=== PATIENT | female | born 1965 | race Caucasian/White ===

== ENCOUNTER 2016-06-28 10:05 | Emergency (ER) | payer MEDICAID ==
[2016-06-28 10:13] VITALS: BP 165/103
--- NOTE | 2016-06-28 11:11 | ED Physician Documentation ---
History of Present Illness - Stated complaint Stated Complaint: L FACE SWELLING/PX - Chief complaint Chief Complaint: Heent - Additonal information Additional information: hx from pt 51 female has dentures L upper gum pain and swelling and now facial swelling no fever painful Review of Systems Constitutional: denies: Fever Throat: reports: Dental pain / toothache Immunocompromised: denies: Immunocompromised PD PAST MEDICAL HISTORY - Past Medical History Past Medical History: Yes Cardiovascular: Hypertension Respiratory: None Neuro: None Endocrine/Autoimmune: None GI: None ACCOUNTS PAYABLE ASSISTANT: Other : None HEENT: None Psych: None Musculoskeletal: None Derm: None - Past Surgical History Past Surgical History: Yes /ACCOUNTS PAYABLE ASSISTANT: Hysterectomy HEENT: Other - Present Medications Home Medications: Ambulatory Orders Medication Instructions Recorded Confirmed Amoxicillin 500 mg PO Q8H #30 capsule 06/28/16 HYDROcod/ACETAM 5/325 [Carville 5/325] 1 ea PO Q6H PRN #10 tablet 06/28/16 - Allergies Allergies/Adverse Reactions: Allergies Allergy/AdvReac Type Severity Reaction Status Date / Time No Known Drug Allergies Allergy Verified 06/28/16 10:13 - Social History Does the pt smoke?: Yes Smoking Status: Current every day smoker Does the pt drink ETOH?: Yes Does the pt have substance abuse?: No - Immunizations Immunizations are current?: Yes PD ED PE NORMAL - Vitals Vital signs reviewed: Yes - HEENT HEENT: Other (upper left gum edentulous red and swollen and tender but no discrete abscess, some slight left cheek swelling) - Cardiac Cardiac: RRR, No murmur - Respiratory Respiratory: No respiratory distress, Clear bilaterally Results - Vitals Vitals: Vital Signs - 24 hr 06/28/16 10:11 Temperature 36.2 C L Heart Rate 95 Respiratory 14 Rate Blood Pressure 165/103 H O2 Saturation 100 Oxygen O2 Source Room air Departure - Departure Disposition: Home, Self Care Clinical Impression: Facial cellulitis Condition: Good Instructions: ED Cellulitis Facial Prescriptions: Amoxicillin 500 mg PO Q8H #30 capsule HYDROcod/ACETAM 5/325 [Carville 5/325] 1 ea PO Q6H PRN #10 tablet PRN Reason: Severe Pain Comments: Follow up with [facility] dental clinic Thursday - call to schedule Return to see me for a recheck tomorrow if not improving Forms: Activity restrictions
[2016-06-28] MEDS ORDERED: DEXAMETHASONE 10 MG/ML VIAL PO STA (11:14)
[2016-06-28] MEDS ORDERED: DEXAMETHASONE 10 MG/ML VIAL ONE (11:19)
== END 2016-06-28 11:29 | disposition home or self-care (01) ==
LOC: ED 10:05
DX: L03.211 Cellulitis of face (principal); I10 Essential (primary) hypertension; F17.200 Nicotine dependence, unspecified, uncomplicated
CPT/HCPCS: 99283

== ENCOUNTER 2016-08-25 07:31 | Outpatient (CLI) | payer MEDICAID ==
[2016-08-25 19:49] LABS: BASOPHILS % (AUTO) 0.7 %; EOSINOPHILS # (AUTO) 0.1 10^3/uL (0.0-0.7); HCT - HEMATOCRIT 41.7 % (37.0-47.0); HGB - HEMOGLOBIN 13.7 g/dL (12.0-16.0); LYMPHOCYTES # (AUTO) 1.9 10^3/uL (1.5-3.5); LYMPHOCYTES % (AUTO) 30.1 %; MEAN CORPUSCULAR HEMOGLOBIN 33.1 pg (27.0-31.0); MEAN CORPUSCULAR HGB CONC 32.8 g/dL (32.0-36.0); MEAN PLATELET VOLUME 7.6 fL (7.9-10.8); MONOCYTES # (AUTO) 0.5 10^3/uL (0.0-1.0); MONOCYTES % (AUTO) 8.6 %; NEUTROPHILS # (AUTO) 3.8 10^3/uL (1.5-6.6); NEUTROPHILS % (AUTO) 59.6 %; NUCLEATED RED BLOOD CELLS AUTO 0.1 /100WBC; RED BLOOD COUNT 4.13 10^6/uL (4.20-5.40); RED CELL DISTRIBUTION WIDTH 12.9 % (12.0-15.0); UNCORRECTED WHITE BLOOD COUNT 6.4 x10^3/uL; WHITE BLOOD COUNT 6.4 x10^3/uL (4.8-10.8)
[2016-08-25 20:01] LABS: ALBUMIN/GLOBULIN RATIO 1.6 (1.0-2.2); BILIRUBIN,TOTAL 0.6 mg/dL (0.2-1.0); BUN - BLOOD UREA NITROGEN 10 mg/dL (6-20); CALCIUM 9.6 mg/dL (8.5-10.3); CARBON DIOXIDE - CO2 25 mmol/L (21-32); CHLORIDE 98 mmol/L (101-111); CHOL/HDL RATIO 2.5 (<4.4); CHOLESTEROL 193 mg/dL; CREATININE 0.7 mg/dL (0.4-1.0); GFR - MDRD 88 (>89); GLUCOSE 90 mg/dL (70-100); HDL CHOLESTEROL 77 mg/dL; LDL/HDL RATIO 1.3 (<4.4); SODIUM 133 mmol/L (135-145); TOTAL PROTEIN 7.4 g/dL (6.7-8.2); TRIGLYCERIDES 80 mg/dL; VLDL CHOLESTEROL 16 mg/dL
== END 2016-08-25 07:32 | disposition home or self-care (01) ==
LOC: LAB.N 07:31
PROVIDERS: ATTEND Nurse Practitioner Gerontology
DX: Z13.9 Encounter for screening, unspecified (principal)
CPT/HCPCS: 36415; 80053; 80061; 84443; 85025

== ENCOUNTER 2016-08-25 15:28 | Outpatient (CLI) | payer MEDICAID ==
--- NOTE | 2016-08-27 09:51 | Mammography Report ---
DIGITAL BILATERAL SCREENING MAMMOGRAM: 08/25/2016 CLINICAL HISTORY: A 51-year-old female in for routine screening mammogram. Patient has no family hi story of breast cancer. Patient has no prior breast surgeries. COMPARISON: 01/31/2009, 06/04/2009, 08/30/2010 TECHNIQUE: Craniocaudad and oblique lateral views of each breast were obtained with Hologic Full Fie ld digital mammography. To compliment the exam, axillary exaggerated craniocaudad views of each jovani st were done. FINDINGS: Mildly heterogeneously dense breasts are noted bilaterally. No significant clusters of ca lcification are seen. No significant masses are noted. No significant change is seen. IMPRESSION: BREASTS APPEAR RADIOGRAPHICALLY BENIGN. BIRADS CATEGORY 1 - NEGATIVE. RECOMMENDATIONS: Annual bilateral screening mammography. STANDARD QUALIFYING STATEMENTS 1. This examination was reviewed with the aid of Computer-Aided Detection (CAD). 2. A negative or benign imaging report should not delay biopsy if clinically suspicious findings are present. Consider surgical consultation if warranted. More than 5% of cancers are not identified by i maging. 3. Dense breasts may obscure an underlying neoplasm. JOB #: [id number] EXT JOB #:[id number]
== END 2016-08-25 15:29 | disposition home or self-care (01) ==
LOC: DI.N 15:28
PROVIDERS: ATTEND Nurse Practitioner Gerontology
DX: Z12.39 Encounter for other screening for malignant neoplasm of breast (principal)
CPT/HCPCS: 77067

== ENCOUNTER 2017-06-20 13:32 | Outpatient (CLI) | payer MEDICAID ==
--- NOTE | 2017-06-20 15:41 | XRAY Report ---
EXAM: CHEST RADIOGRAPHY EXAM DATE: 06/20/2017 01:52 PM. CLINICAL HISTORY: RIB PAIN,LEFT SIDED. COMPARISON: Previous exam of 08/20/2010. TECHNIQUE: 2 views. FINDINGS: Lungs/Pleura: No focal opacities evident. No pleural effusion. No pneumothorax. Normal volumes. Mediastinum: Heart and mediastinal contours are unremarkable. Other: None. IMPRESSION: Normal 2-view chest radiography. [facility] Referring Provider Line: [phone] SITE ID: [id number]
== END 2017-06-20 13:33 | disposition home or self-care (01) ==
LOC: DI 13:32
PROVIDERS: ATTEND Nurse Practitioner Gerontology
DX: R07.81 Pleurodynia (principal)
CPT/HCPCS: 71046

== ENCOUNTER 2018-08-21 14:57 | Emergency (ER) | payer MEDICAID ==
[2018-08-21 15:02] VITALS: BP 146/94
[2018-08-21] MEDS ORDERED: ONDANSETRON ODT 4 MG TABLET TL STA (15:18)
[2018-08-21] MEDS ORDERED: HYDROcod/ACETAM 5/325 MG TABLET PO STA (15:18)
--- NOTE | 2018-08-21 15:21 | ED Physician Documentation ---
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 MACHINE OPERATOR: Other : None HEENT: None Psych: None Musculoskeletal: None Derm: None - Past Surgical History Past Surgical History: Yes /HOBBING MACHINE OPERATOR: Hysterectomy HEENT: Other - Present Medications Home Medications: Ambulatory Orders Medication Instructions Recorded Confirmed Hydrocodone/Acetaminophen 1 - 2 each PO Q6H PRN #14 tablet 08/21/18 [Hydrocodon-Acetaminophen 5-325] Lisinopril 10 mg PO DAILY 08/21/18 08/21/18 - Allergies Allergies/Adverse Reactions: Allergies Allergy/AdvReac Type Severity Reaction Status Date / Time No Known Drug Allergies Allergy Verified 08/21/18 15:02 - Social History Does the pt smoke?: Yes Smoking Status: Current every day smoker Does the pt drink ETOH?: Yes Does the pt have substance abuse?: No - Immunizations Immunizations are current?: Yes PD ED PE NORMAL - Vitals Vital signs reviewed: Yes - General General: Alert and oriented X 3, Other (tearful) - Neck Neck: No bony TTP - Extremities Extremities: Other (TTP R distal radius, no deformity, NVI in the hand) - Neuro Neuro: Alert and oriented X 3, Normal speech Results - Vitals Vitals: Vital Signs - 24 hr 08/21/18 15:01 Temperature 36.4 C L Heart Rate 105 H Respiratory 20 Rate Blood Pressure 146/94 H O2 Saturation 100 Oxygen O2 Source Room air - Rads (name of study) R wrist 3v Radiology: EMP read contemporaneously (comminuted intraarticular distal radius frx) Procedures - Splint (location) R arm Splint applied by: Tech Type of splint: Fiberglass, Long arm, Sugar tong Other: Patient tolerated well, No complications, Neurovascular intact, Sling provided Departure - Departure Disposition: 01 Home, Self Care Clinical Impression: Fracture of right distal radius Qualifiers: Encounter type: initial encounter Fracture type: closed Fracture morphology: other intra-articular Qualified Code(s): S52.571A - Other intraarticular fracture of lower end of right radius, initial encounter for closed fracture Condition: Good Record reviewed to determine appropriate education?: Yes Health Concerns: Wrist fracture Plan of Treatment: splint, followup orthopedics Instructions: ED Fx Forearm Radius Ulna No Redu Requ Follow-Up: [facility] [Provider Group] - Within 1 week Prescriptions: Hydrocodone/Acetaminophen [Hydrocodon-Acetaminophen 5-325] 1 - 2 each PO Q6H PRN #14 tablet PRN Reason: pain
--- NOTE | 2018-08-21 15:29 | XRAY Report ---
Reason: s/p fall while rollerskating. pain/selling Procedure Date: 08/21/2018 Accession Number: [id number] / [id number] Procedure: XR - Wrist 3 View RT CPT Code: FULL RESULT: EXAM: RIGHT WRIST RADIOGRAPHY EXAM DATE: 08/21/2018 03:14 PM. CLINICAL HISTORY: S/p fall while roller-skating. pain/selling. COMPARISON: None. TECHNIQUE: 3 views. FINDINGS: There is a comminuted fracture of the distal radius metaphysis with intra-articular extension and mild angulation measuring about 20 degrees. Minimal displacement and impaction of fracture fragments. There may be an avulsion fracture of the ulnar styloid. Normal carpal alignment. IMPRESSION: Comminuted intra-articular distal radius fracture. [facility]
== END 2018-08-21 15:49 | disposition home or self-care (01) ==
LOC: ED 14:57
DX: S52.571A Other intraarticular fracture of lower end of right radius, initial encounter for closed fracture (principal); W01.0XXA Fall on same level from slipping, tripping and stumbling without subsequent striking against object, initial encounter; Y93.51 Activity, roller skating (inline) and skateboarding; I10 Essential (primary) hypertension; F17.200 Nicotine dependence, unspecified, uncomplicated
CPT/HCPCS: 29125; 73110; 99281; 99283; A9270; Q0162; 29105

== ENCOUNTER 2018-08-24 09:54 | Outpatient (CLI) | payer MEDICAID ==
[2018-08-24 10:20] LABS: BASOPHILS % (AUTO) 0.8 %; EOSINOPHILS % (AUTO) 0.6 %; HGB - HEMOGLOBIN 12.9 g/dL (12.0-16.0); LYMPHOCYTES # (AUTO) 1.4 10^3/uL (1.5-3.5); LYMPHOCYTES % (AUTO) 25.8 %; MEAN CORPUSCULAR HEMOGLOBIN 35.3 pg (27.0-31.0); MEAN CORPUSCULAR HGB CONC 33.7 g/dL (32.0-36.0); MEAN CORPUSCULAR VOLUME 104.9 fL (81.0-99.0); MEAN PLATELET VOLUME 8.4 fL (7.9-10.8); MONOCYTES # (AUTO) 0.5 10^3/uL (0.0-1.0); MONOCYTES % (AUTO) 8.6 %; NEUTROPHILS # (AUTO) 3.4 10^3/uL (1.5-6.6); NEUTROPHILS % (AUTO) 63.8 %; PLT - PLATELET COUNT 228 10^3/uL (130-450); RED BLOOD COUNT 3.65 10^6/uL (4.20-5.40); RED CELL DISTRIBUTION WIDTH 12.6 % (12.0-15.0); WHITE BLOOD COUNT 5.3 x10^3/uL (4.8-10.8)
[2018-08-24 10:29] LABS: CALCIUM 9.6 mg/dL (8.5-10.3); CREATININE 0.5 mg/dL (0.4-1.0)
== END 2018-08-24 09:55 | disposition home or self-care (01) ==
LOC: LAB 09:54
PROVIDERS: ATTEND Orthopaedic Surgery
DX: Z01.812 Encounter for preprocedural laboratory examination (principal); S52.572A Other intraarticular fracture of lower end of left radius, initial encounter for closed fracture
CPT/HCPCS: 36415; 80048; 85025

== ENCOUNTER 2018-08-25 06:06 | Day surgery (SDC) | payer MEDICAID ==
[2018-08-25] MEDS ORDERED: LACTATED RINGERS 1,000 ML IV ONE ×2 (06:22→09:02)
[2018-08-25] MEDS ORDERED: CEFAZOLIN SODIUM IN 0.9 % NACL 2 GM/100 ML BAG IV ONE ×2 (06:49→08:05)
--- NOTE | 2018-08-25 07:03 | ANESTHESIA ---
Pre-Anesthesia VS, & Labs - Diagnosis right distal radius fracture - Procedure orif right wrist Vital Signs: Temp Pulse Resp BP Pulse Ox 36.2 C L 72 16 127/77 96 08/25/18 06:33 08/25/18 06:33 08/25/18 06:33 08/25/18 06:33 08/25/18 06:33 Height 5 ft 1 in Weight (kg) 45 kg Body Mass Index 19.3 - NPO >8 hours - Is Patient ?: No Home Medications and Allergies Lisinopril 10 mg PO DAILY 08/21/18 Allergies/Adverse Reactions: Allergies Allergy/AdvReac Type Severity Reaction Status Date / Time No Known Drug Allergies Allergy Verified 08/21/18 15:02 Anes History & Medical History - Anesthetic History Anesthesia Complications: reports: No previous complications Family history of Anesthesia Complications: Denies Family history of Malignant Hyperthermia: Denies - Medical History Cardiovascular: reports: Hypertension Pulmonary: reports: None Gastrointestinal: reports: None Urinary: reports: None Musculoskeletal: reports: None Endocrine/Autoimmune: reports: None Blood Disorders: reports: None Skin: reports: None Smoking Status: Current every day smoker - Surgical History Eyes Ears Nose Throat (EENT): Other Gynecologic: Hysterectomy Exam General: Alert, Oriented x3, Cooperative, No acute distress Dental: Dentures full Upper, Dentures full Lower Mouth Openin Fingerbreadth Neck Mobility: Normal Mallampati classification: III Thyromental Distance: greater than 6 cm Respiratory: Lungs clear, Normal breath sounds, No respiratory distress, No accessory muscle use Cardiovascular: Regular rate, Normal S1, Normal S2, No murmurs Plan Anesthesia Type: General Consent for Procedure(s) Verified and Reviewed: Yes Code Status: Attempt Resuscitation ASA classification: 2-Mild systemic disease Is this case an emergency?: No
[2018-08-25] MEDS ORDERED: BUPIVACAINE 0.25% PF 30 ML VIAL ONE (07:18)
[2018-08-25] MEDS ORDERED: fentaNYL 100 MCG/2 ML VIAL IVP ONE (08:05)
[2018-08-25] MEDS ORDERED: LIDOCAINE-MPF 2% 5 ML VIAL IM ONE (08:05)
[2018-08-25] MEDS ORDERED: ROCURONIUM 50 MG/5 ML VIAL IVP ONE (08:05)
[2018-08-25] MEDS ORDERED: ACETAMINOPHEN 1,000 MG/100 ML 100 ML IV ONE (08:05)
[2018-08-25] MEDS ORDERED: KETOROLAC 30 MG/ML VIAL IVP ONE (08:05)
[2018-08-25] MEDS ORDERED: PROPOFOL 200 MG/20 ML VIAL IVP ONE (08:05)
[2018-08-25] MEDS ORDERED: ONDANSETRON 4 MG/2 ML VIAL IVP ONE (08:05)
[2018-08-25] MEDS ORDERED: HYDROcod/ACETAM 5/325 MG TABLET PO PRN (08:45)
[2018-08-25] MEDS ORDERED: ONDANSETRON 4 MG/2 ML VIAL IVP PRN (08:45)
[2018-08-25] MEDS ORDERED: ONDANSETRON 4 MG/2 ML VIAL ONE (09:06)
[2018-08-25] MEDS ORDERED: PROMETHAZINE 25 MG/1 ML VIAL ONE (09:19)
[2018-08-25] MEDS ORDERED: SODIUM CHLORIDE FLUSH 0.9% 10 ML SYRINGE ONE (09:20)
[2018-08-25 11:05] VITALS: BP 121/77
--- NOTE | 2018-08-25 14:09 | OPERATIVE REPORT ---
DATE OF SERVICE: 08/25/2018 Physician: Vadim Miller MD PREOPERATIVE DIAGNOSIS: Right distal radius angulated fracture. POSTOPERATIVE DIAGNOSIS: Right distal radius angulated fracture. PROCEDURE PERFORMED: Open reduction, internal fixation of right distal radius fracture. OPERATING SURGEON: Vadim Miller MD ANESTHESIA: General. ANESTHESIOLOGIST: Dr. Radha CHAVES INDICATIONS FOR SURGERY: Patient is a 53-year-old female status post a ground fall incident onto her right wrist causing a dorsally angulated Colles fracture, which was closed. Recommendation was for anatomic muslim by open reduction and internal fixation. FINDINGS AT SURGERY: Patient's fracture had a dorsal angulation that was able to be corrected to an anatomic position. She did not have evidence of intraarticular extension of her fracture. DESCRIPTION OF OPERATIVE PROCEDURE: Patient was taken to the operating room and was given a general anesthetic and placed in a supine position. A tourniquet was placed on her arm. Her forearm and hudson d were sterilely prepped and draped in standard fashion. Surgical timeout was held. Patient's limb was exsanguinated and a longitudinal 3-1/2 inch incision was made over the distal flexor carpi radial is tendon. The dissection was taken down beneath the tendon sheath to the volar surface of the forea rm where the pronator quadratus was taken down off the very distal radius, exposing the fracture site and allowing direct visualization as the fracture was reduced and then fixed with a DVR short narrow plate. This was applied with standard technique, initially affixing it to the bone and then applyin g first nonlocking screws proceeded by locking screws and gaining good fixation and proper placement as viewed by C-arm images. At the conclusion of muslim of function and plating, the wound was i rrigated, tourniquet was deflated, minor cautery was used, followed by closure of the pronator quadra tus with Vicryl suture and repair. Then, subcutaneous with interrupted Vicryl suture and Monocryl cl osure of skin. Sterile dressings were applied. Patient was placed into a well-padded sugar-tong spl int and taken to the recovery room in stable condition. ESTIMATED BLOOD LOSS: Minimal. COMPLICATIONS: None. COUNTS: Sponge and needle counts correct. TD: 08/25/2018 13:14
== END 2018-08-25 06:07 | disposition home or self-care (01) ==
LOC: SDS 06:06
PROVIDERS: ATTEND Orthopaedic Surgery
PROC: 0PSH04Z Reposition Right Radius with Internal Fixation Device, Open Approach (ICD-10-PCS; principal; 2018-08-25 07:30)
DX: S52.531A Colles' fracture of right radius, initial encounter for closed fracture (principal); I10 Essential (primary) hypertension; F17.210 Nicotine dependence, cigarettes, uncomplicated
CPT/HCPCS: 25607; C1713; J0131; J0690; J7120

== ENCOUNTER 2018-09-07 07:50 | Outpatient (CLI) | payer MEDICAID ==
[2018-09-07 12:20] LABS: BASOPHILS # (AUTO) 0.1 10^3/uL (0.0-0.1); BASOPHILS % (AUTO) 1.1 %; EOSINOPHILS # (AUTO) 0.1 10^3/uL (0.0-0.7); EOSINOPHILS % (AUTO) 1.5 %; LYMPHOCYTES % (AUTO) 33.3 %; MEAN CORPUSCULAR HEMOGLOBIN 35.1 pg (27.0-31.0); MEAN CORPUSCULAR HGB CONC 33.5 g/dL (32.0-36.0); MEAN CORPUSCULAR VOLUME 104.9 fL (81.0-99.0); MEAN PLATELET VOLUME 8.7 fL (7.9-10.8); MONOCYTES # (AUTO) 0.7 10^3/uL (0.0-1.0); NEUTROPHILS # (AUTO) 3.2 10^3/uL (1.5-6.6); NEUTROPHILS % (AUTO) 52.6 %; PLT - PLATELET COUNT 366 10^3/uL (130-450); RED CELL DISTRIBUTION WIDTH 12.9 % (12.0-15.0); WHITE BLOOD COUNT 6.1 x10^3/uL (4.8-10.8)
[2018-09-07 12:28] LABS: ALBUMIN 4.2 g/dL (3.2-5.5); ALBUMIN/GLOBULIN RATIO 1.5 (1.0-2.2); ALKALINE PHOSPHATASE 55 IU/L (42-121); ALT ALANINE AMINOTRANSFERASE 31 IU/L (10-60); AST ASPARTATE AMINOTRANSFERASE 26 IU/L (10-42); BILIRUBIN,TOTAL 0.7 mg/dL (0.2-1.0); BUN - BLOOD UREA NITROGEN 15 mg/dL (6-20); CALCIUM 9.4 mg/dL (8.5-10.3); CARBON DIOXIDE - CO2 23 mmol/L (21-32); CHLORIDE 96 mmol/L (101-111); CHOL/HDL RATIO 2.9 (<4.4); CHOLESTEROL 184 mg/dL; CREATININE 0.6 mg/dL (0.4-1.0); GFR - MDRD 104 (>89); GLUCOSE 96 mg/dL (70-100); HDL CHOLESTEROL 64 mg/dL; LDL CHOLESTEROL,CALCULATED 106 mg/dL; LDL/HDL RATIO 1.7 (<4.4); SODIUM 132 mmol/L (135-145); VLDL CHOLESTEROL 14 mg/dL
== END 2018-09-07 08:00 | disposition home or self-care (01) ==
LOC: LAB.N 07:50
PROVIDERS: ATTEND Nurse Practitioner Gerontology
DX: I10 Essential (primary) hypertension (principal)
CPT/HCPCS: 36415; 80053; 80061; 83721; 85025

== ENCOUNTER 2018-11-08 08:00 | Outpatient (CLI) | payer MEDICAID ==
[2018-11-08 13:22] LABS: BUN - BLOOD UREA NITROGEN 12 mg/dL (6-20); CALCIUM 9.5 mg/dL (8.5-10.3); CARBON DIOXIDE - CO2 25 mmol/L (21-32); CHLORIDE 102 mmol/L (101-111); CREATININE 0.5 mg/dL (0.4-1.0); GFR - MDRD 129 (>89); GLUCOSE 79 mg/dL (70-100); SODIUM 136 mmol/L (135-145)
[2018-11-08 13:44] LABS: CRP - C-REACTIVE PROTEIN < 1.0 mg/dL (0-1.0)
[2018-11-08 18:56] LABS: RHEUMATOID FACTOR NEGATIVE (Negative)
[2018-11-11 13:46] LABS: ANA SCREEN NEGATIVE (NEGATIVE)
== END 2018-11-08 23:59 | disposition home or self-care (01) ==
LOC: LAB.N 08:00
PROVIDERS: ATTEND Nurse Practitioner Gerontology
DX: M25.50 Pain in unspecified joint (principal); E87.1 Hypo-osmolality and hyponatremia
CPT/HCPCS: 36415; 80048; 85651; 86038; 86140; 86430

== ENCOUNTER 2022-07-27 18:19 | Emergency (ER) | payer MEDICAID, OTHER ==
[2022-07-27 18:32] VITALS: BP 177/85
[2022-07-27] MEDS ORDERED: cephALEXin 250 MG CAPSULE PO STA (19:28)
[2022-07-27] MEDS ORDERED: CEPHALEXIN 250 MG Prepack 8 CAP BOTTLE PO STA (19:29)
[2022-07-27] MEDS ORDERED: TETANUS/DIPHTHERIA/PERTUSSIS 0.5 ML SYRINGE IM ONE (19:29)
--- NOTE | 2022-07-27 19:31 | ED Physician Documentation ---
PD HPI SKIN - Stated complaint Stated Complaint: R SWOLLEN HAND/SUNBURN NOSE - Chief complaint Chief Complaint: General - History obtained from History obtained from: Patient, Family - History of Present Illness Timing - onset: How many weeks ago (2) Timing - duration: Weeks (2) Timing - details: Abrupt onset, Still present Location: Face, RUE Quality / character: Itchy, Painful, Burning, Crusted, Swelling Associated symptoms: Facial swelling, Other (blisters to fingers and swelling redness of right hand). No: Fever, Myalgias, Joint pain, Headache, Dyspnea, Abd pain, N/V/D, Urinary sx Contributing factors: Other (exposed to cleaning chemicals at work.) Similar symptoms before: Has not had sx before Recently seen: Not recently seen - Additional information Additional information: Glenn Haynes is a 57-year-old female presenting to the emergency department today with what she thinks is a sunburn to her nose and blistering and swelling of her right hand. 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 This has scabbed over and she was seen in the urgent care and at that time was told that this should just heal. Subsequently over the last 3 days the patient has developed blisters to her hand and our hand is swollen as well. I queried the patient about her use of chemicals at the workplace and she did indicate that yes she has been using a bathroom vacuum cleaner repair person that is unlabeled and she does not wear gloves all the time when she is at work. She does indicate that she could have rubbed her nose as well and that she just was cleaning 2 weeks ago before this occurred. She is complaining of some swelling to her right hand over the dorsum that extends to the proximal wrist. She is drawn a line to the redness. She has not had fever or chills. She has not otherwise been ill. She does admit to continuing to work with what ever is in front of her without pain attention to what she is doing. She has not had these blisters to her hands previously. Review of Systems Constitutional: denies: Fever, Chills, Myalgias Ears: denies: Ear pain Nose: reports: Other (escar to the external nose). denies: Rhinorrhea / runny nose, Congestion Throat: denies: Sore throat Cardiac: denies: Chest pain / pressure, Palpitations Respiratory: denies: Dyspnea, Cough GI: denies: Vomiting, Diarrhea Skin: reports: Other (blistering to fingers of right hand and plam, escar to the nose) Musculoskeletal: reports: Extremity pain. denies: Neck pain, Back pain Neurologic: denies: Generalized weakness, Focal weakness, Numbness PD PAST MEDICAL HISTORY - Past Medical History Cardiovascular: Hypertension Respiratory: None Endocrine/Autoimmune: None GI: None PRACTICE ADVISOR: Other : None HEENT: Chronic vision loss, Other Psych: None Musculoskeletal: None Derm: None - Past Surgical History Past Surgical History: Yes /PRACTICE ADVISOR: Hysterectomy HEENT: Other - Present Medications Home Medications: Ambulatory Orders Medication Instructions Recorded Confirmed Hydrocodone/Acetaminophen 1 - 2 each PO Q6H PRN #14 tablet 08/21/18 08/25/18 [Hydrocodon-Acetaminophen 5-325] lisinopriL [Lisinopril] 10 mg PO DAILY 08/21/18 08/25/18 cephALEXin [Keflex] 500 mg PO Q6H #28 cap 07/27/22 - Allergies Allergies/Adverse Reactions: Allergies Allergy/AdvReac Type Severity Reaction Status Date / Time No Known Drug Allergies Allergy Verified 07/27/22 18:27 - Social History Does the pt smoke?: Yes Smoking Status: Current every day smoker Does the pt drink ETOH?: Yes Does the pt have substance abuse?: No - Immunizations Immunizations are current?: Yes PD ED PE NORMAL - Vitals Vital signs reviewed: Yes (hypertensive ) - General General: Alert and oriented X 3, No acute distress, Well developed/nourished - HEENT HEENT: PERRL, EOMI, Other (There is eschar over the nasal bridge extending over both ala and to the tip of the nose. This looks more extensive than a sunburn and the patient has no involvement of her cheeks. 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 There is no reduction in range of motion. On the palmar side of the hand the patient has a 3 cm blister to the hyperthenar eminence that appears inflamed on the ulnar aspect and is likely the cause of swelling to the and redness to the dorsum of the hand she also has blistering extensively to the right index finger Results - Vitals Vitals: Vital Signs - 24 hr 07/27/22 18:27 Temperature 36.5 C Heart Rate 95 Respiratory 16 Rate Blood Pressure 177/85 H O2 Saturation 99 Oxygen O2 Source Room air PD Medical Decision Making - ED course Complexity details: considered differential, d/w patient, d/w family ED course: 57-year-old female who appears to have some chemical burn to her skin as blistering on the right hand in multiple areas and one looks to be infected causing some cellulitis to the dorsum of the hand. 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 I believe the eschar to the patient's nose is related to a similar process and when I queried the patient about whether she does rub her hand across the top of her nose and demonstrated this she acknowledges that yes indeed she does do that.I cannot make this out as a sunburn to the nose. I have referred her to [facility] for follow-up. I have asked the patient to ask her boss about the specific chemicals she is using in order to avoid this in the future. Patient is given a note for work for 10 days. Departure - Departure Disposition: 01 Home, Self Care Clinical Impression: Cellulitis of right hand Chemical burn of multiple fingers of right hand excluding thumb Qualifiers: Encounter type: initial encounter Corrosion degree: second degree Qualified Code(s): T23.631A - Corrosion of second degree of multiple right fingers (nail), not including thumb, initial encounter Partial thickness chemical burn of nose Qualifiers: Encounter type: initial encounter Qualified Code(s): T20.64XA - Corrosion of second degree of nose (septum), initial encounter Condition: Stable Instructions: ED Infec Skin Cellulitis, ED Burn D 2nd Follow-Up: [facility] [Provider Group] Prescriptions: cephALEXin [Keflex] 500 mg PO Q6H #28 cap Comments: Filomena, today it looks like you have a chemical burn of your hand and nose and this looks to be work related. You will need some time for your hand to heal up and unfortunately will not be able to work during this period of time. My recommendation to you is to contact her boss and figure out which chemical you have been exposed to so that you are not having this in the future. There is an infection to the back of your right hand that looks to be related to the blister on the palm. We have started you on an antibiotic cephalexin and we expect reduction in the redness and swelling over the next 2 to 3 days. If you have worsening of the swelling and redness this indicates a failure of outpatient antibiotic and is a reason to return to the emergency department for admission to the hospital. Cellulitis is an infection that usually responds well to oral antibiotic and when it does not it can get out of hand quickly so do not fail a follow-up if you need it. I have E scribed the cephalexin to [facility] in [place]. Keep your wounds clean and dry and dressed. Expect to have healing over the next 2 weeks. I am uncertain exactly how long entire healing will take. For this reason I am asking you to follow-up with [facility]. I have given you a work note for 10 days. Forms: Activity restrictions
[2022-07-27] MEDS ORDERED: BACITRACIN ZINC OINT 1 PACKET TOP STA (20:10)
== END 2022-07-27 20:39 | disposition home or self-care (01) ==
LOC: ED 18:19
DX: T23.631A Corrosion of second degree of multiple right fingers (nail), not including thumb, initial encounter (principal); T20.64XA Corrosion of second degree of nose (septum), initial encounter; L03.113 Cellulitis of right upper limb; F17.200 Nicotine dependence, unspecified, uncomplicated; I10 Essential (primary) hypertension; Z79.899 Other long term (current) drug therapy; Z23 Encounter for immunization
CPT/HCPCS: 1040M; 90471; 90715; 99283; A9270

== ENCOUNTER 2023-09-14 11:16 | Emergency (ER) | payer MEDICAID, OTHER ==
[2023-09-14 11:47] VITALS: O2SAT 95
[2023-09-14 11:59] LABS: BASOPHILS # (AUTO) 0.1 10^3/uL (0.0-0.1); BASOPHILS % (AUTO) 1.1 %; EOSINOPHILS % (AUTO) 0.2 %; HCT - HEMATOCRIT 27.2 % (37.0-47.0); HGB - HEMOGLOBIN 9.4 g/dL (12.0-16.0); LYMPHOCYTES # (AUTO) 0.7 10^3/uL (1.5-3.5); LYMPHOCYTES % (AUTO) 13.8 %; MEAN CORPUSCULAR HEMOGLOBIN 38.8 pg (27.0-31.0); MEAN CORPUSCULAR HGB CONC 34.6 g/dL (32.0-36.0); MEAN CORPUSCULAR VOLUME 112.4 fL (81.0-99.0); MEAN PLATELET VOLUME 9.5 fL (7.9-10.8); MONOCYTES # (AUTO) 0.4 10^3/uL (0.0-1.0); MONOCYTES % (AUTO) 6.6 %; NEUTROPHILS # (AUTO) 4.1 10^3/uL (1.5-6.6); NEUTROPHILS % (AUTO) 77.5 %; PLT - PLATELET COUNT 205 10^3/uL (130-450); RED BLOOD COUNT 2.42 10^6/uL (4.20-5.40); RED CELL DISTRIBUTION WIDTH 15.7 % (12.0-15.0); WHITE BLOOD COUNT 5.3 x10^3/uL (4.8-10.8)
[2023-09-14 12:12] LABS: ALBUMIN 3.5 g/dL (3.2-5.5); ALBUMIN/GLOBULIN RATIO 1.4 (1.0-2.2); BILIRUBIN,TOTAL 2.9 mg/dL (0.2-1.0); CALCIUM 8.8 mg/dL (8.5-10.3); CREATININE 0.4 mg/dL (0.6-1.3); POTASSIUM 3.9 mmol/L (3.5-4.5)
--- NOTE | 2023-09-14 12:39 | XRAY Report ---
PROCEDURE: Chest 1V INDICATIONS: dyspnea TECHNIQUE: One view of the chest was acquired. COMPARISON: 06/20/2017 FINDINGS: Surgical changes and devices: None. Lungs and pleura: No pleural effusions or pneumothorax. Lungs are clear. Mediastinum: Mediastinal contours appear normal. Heart size is normal. Bones and chest wall: No suspicious bony lesions. Overlying soft tissues appear unremarkable. IMPRESSION: No acute cardiopulmonary process. Reviewed by: Ash Ng MD on 09/14/2023 12:37 PM PDT Approved by: Ash Ng MD on 09/14/2023 12:37 PM PDT Station ID: [id number]
[2023-09-14 13:23] LABS: RBC MORPHOLOGY (MULTIPLE) 3+ MACROCYTOSIS (NORMAL); SLIDE REVIEW? Indicated
[2023-09-14 13:41] LABS: B. PARAPERTUSSIS- RESP PCR PAN NOT DETECTED; B. PERTUSSIS- RESP PCR PANEL NOT DETECTED; C. PNEUMONIAE- RESP PCR PANEL NOT DETECTED; CORONAVIRUS 229E-RESP PCR NOT DETECTED; CORONAVIRUS HKU1-RESP PCR NOT DETECTED; CORONAVIRUS NL63-RESP PCR NOT DETECTED; CORONAVIRUS OC43-RESP PCR NOT DETECTED; HUMAN METAPNEUMOVIRUS NOT DETECTED; INFLUENZA A- RESP PCR PANEL NOT DETECTED; INFLUENZA B - RESP PCR PANEL NOT DETECTED; M. PNEUMONIAE- RESP PCR PANEL NOT DETECTED; PARAINFLUENZA VIRUS 1 NOT DETECTED; PARAINFLUENZA VIRUS 2 NOT DETECTED; PARAINFLUENZA VIRUS 3 NOT DETECTED; PARAINFLUENZA VIRUS 4 NOT DETECTED; RHINOVIRUS/ENTEROVIRUS NOT DETECTED; RSV- RESP PCR PANEL NOT DETECTED; SARS-CoV-2 -RESP PCR PANEL NOT DETECTED
--- NOTE | 2023-09-14 13:54 | ED Physician Documentation ---
History of Present Illness - Stated complaint Stated Complaint: SOA DIZZY - Chief complaint Chief Complaint: Resp - History obtained from History obtained from: Patient - Additonal information Additional information: The patient comes to the emergency department chief complaint of dyspnea. She states that she is also felt a little dizzy which she clarifies to be lightheadedness. The patient has been a lifelong smoker throughout her adult years but states she has never been diagnosed with COPD. She has had a productive cough recently and has just been feeling a bit short of breath. She states it is worse when she gets up and walks around. She does not really notice a difference when she lays back. The patient has no history of cardiac issues. No pulmonary diagnoses. She denies any fevers or chills. No GI symptoms. 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 HEENT: Chronic vision loss, Other Psych: None Musculoskeletal: None Derm: None - Past Surgical History Past Surgical History: Yes /FLIGHT TECHNICIAN: Hysterectomy HEENT: Other - Present Medications Home Medications: Ambulatory Orders Medication Instructions Recorded Confirmed Azithromycin [Zithromax] 0 mg PO DAILY #6 tablet 09/14/23 - Allergies Allergies/Adverse Reactions: Allergies Allergy/AdvReac Type Severity Reaction Status Date / Time No Known Drug Allergies Allergy Verified 09/14/23 11:29 - Social History Does the pt smoke?: Yes Smoking Status: Current every day smoker Does the pt drink ETOH?: Yes Does the pt have substance abuse?: Yes - Immunizations Immunizations are current?: Yes PD ED PE NORMAL - Vitals Vital signs reviewed: Yes - General General: Alert and oriented X 3, No acute distress, Well developed/nourished - HEENT HEENT: Atraumatic, PERRL, EOMI, Moist mucous membranes - Neck Neck: Supple, no meningeal sign - Cardiac Cardiac: RRR, No murmur - Respiratory Respiratory: No respiratory distress, Clear bilaterally - Abdomen Abdomen: Soft, Non tender, Non distended - Derm Derm: Normal color, Warm and dry, No rash - Extremities Extremities: No deformity - Neuro Neuro: Alert and oriented X 3 - Psych Psych: Normal mood, Normal affect Results - Vitals Vitals: Oxygen O2 Source Room air - Labs Labs: Laboratory Tests 09/14/23 09/14/23 09/14/23 11:53 11:53 11:53 WBC 5.3 RBC 2.42 L Hgb 9.4 L Hct 27.2 L MCV 112.4 H MCH 38.8 H MCHC 34.6 RDW 15.7 H Plt Count 205 MPV 9.5 Neut # (Auto) 4.1 Lymph # (Auto) 0.7 L [place] # (Auto) 0.4 Eos # (Auto) 0.0 Baso # (Auto) 0.1 Absolute Nucleated RBC 0.00 Nucleated RBC % 0.0 Manual Slide Review Indicated RBC Morph Micro Appear 3+ MACROCYTOSIS Sodium 136 Potassium 3.9 Chloride 95 L Carbon Dioxide 26 Anion Gap 15.0 H BUN 12 Creatinine 0.4 L Estimated GFR (MDRD) 163 Glucose 94 Calcium 8.8 Total Bilirubin 2.9 H AST 194 H ALT 59 Alkaline Phosphatase 230 H B-Natriuretic Peptide 40 Total Protein 6.0 L Albumin 3.5 Globulin 2.5 Albumin/Globulin Ratio 1.4 Lipase 130 H Nasal Adenovirus (PCR) Nasal B. parapertussis DNA (PCR) Nasal Coronavir 229E PCR Nasal Coronavir HKU1 PCR Nasal Coronavir NL63 PCR Nasal Coronavir OC43 PCR Nasal Enterovir/Rhinovir PCR Nasal Influenza B PCR Nasal Influenza A PCR Nasal Parainfluen 1 PCR Nasal Parainfluen 2 PCR Nasal Parainfluen 3 PCR Nasal Parainfluen 4 PCR Nasal RSV (PCR) Nasal B.pertussis DNA PCR Nasal C.pneumoniae (PCR) [place]zer Human Metapneumo PCR Nasal M.pneumoniae (PCR) Nasal SARS-CoV-2 (PCR) 09/14/23 12:45 WBC RBC Hgb Hct MCV MCH MCHC RDW Plt Count MPV Neut # (Auto) Lymph # (Auto) [place] # (Auto) Eos # (Auto) Baso # (Auto) Absolute Nucleated RBC Nucleated RBC % Manual Slide Review RBC Morph Micro Appear Sodium Potassium Chloride Carbon Dioxide Anion Gap BUN Creatinine Estimated GFR (MDRD) Glucose Calcium Total Bilirubin AST ALT Alkaline Phosphatase B-Natriuretic Peptide Total Protein Albumin Globulin Albumin/Globulin Ratio Lipase Nasal Adenovirus (PCR) NOT DETECTED Nasal B. parapertussis DNA (PCR) NOT DETECTED Nasal Coronavir 229E PCR NOT DETECTED Nasal Coronavir HKU1 PCR NOT DETECTED Nasal Coronavir NL63 PCR NOT DETECTED Nasal Coronavir OC43 PCR NOT DETECTED Nasal Enterovir/Rhinovir PCR NOT DETECTED Nasal Influenza B PCR NOT DETECTED Nasal Influenza A PCR NOT DETECTED Nasal Parainfluen 1 PCR NOT DETECTED Nasal Parainfluen 2 PCR NOT DETECTED Nasal Parainfluen 3 PCR NOT DETECTED Nasal Parainfluen 4 PCR NOT DETECTED Nasal RSV (PCR) NOT DETECTED Nasal B.pertussis DNA PCR NOT DETECTED Nasal C.pneumoniae (PCR) NOT DETECTED [place] Human Metapneumo PCR NOT DETECTED Nasal M.pneumoniae (PCR) NOT DETECTED Nasal SARS-CoV-2 (PCR) NOT DETECTED - Rads (name of study) Chest x-ray Relevant Findings:: Final report received, See rad report (No acute findings) PD Medical Decision Making - ED course Complexity details: reviewed results, re-evaluated patient, considered differential, d/w patient ED course: The patient was treated with a liter of normal saline and was worked up with labs and respiratory PCR panel, as well as chest x-ray. The workup showed some elevation of the patient's bilirubin at 2.9 with elevated AST at 194 and alk phos 230. Lipase is 130. The patient had absolutely no complaints whatsoever related to her abdomen even upon asking her again. She had a normal white count, was not jaundiced, and had no fever, and night felt she could follow-up on these abnormalities as an outpatient. I have advised her of the findings and that she very much needs to have close follow-up for this. Patient is agreeable. We have discussed the usual indications for return. Departure - Departure Disposition: 01 Home, Self Care Clinical Impression: Bronchitis COPD (chronic obstructive pulmonary disease) Qualifiers: COPD type: unspecified COPD Qualified Code(s): J44.9 - Chronic obstructive pulmonary disease, unspecified Condition: Stable Instructions: ED Upper Resp Infec Abx Tx, ED COPD Flare Prescriptions: Azithromycin [Zithromax] 0 mg PO DAILY #6 tablet Comments: Your chest x-ray is clear and your labs overall look fairly good with the exception of a little bit of elevation of your liver enzymes. It is important to follow-up on this with your primary doctor to discuss potentially getting some imaging. You most likely have an in the many viral illnesses that are going around right now and causing cough and fatigue. We will treat you with antibiotics for your bronchitis and the prescription for these has been elec tronically transmitted to the [facility] marketplace pharmacy in [place]. Please pick it up and start your antibiotics immediately. I suspect COPD from all your years of smoking, even though you have not been formally diagnosed. This can make even simple viral illnesses feel more severe. You may follow-up with your primary care physician and should do so soon as possible. Please call today to make an appointment. Forms: PCP List Discharge Date/Time: 09/14/23 14:29
[2023-09-14 14:13] VITALS: BP 150/90
== END 2023-09-14 14:29 | disposition home or self-care (01) ==
LOC: ED 11:16
DX: J44.9 Chronic obstructive pulmonary disease, unspecified (principal); F17.200 Nicotine dependence, unspecified, uncomplicated; Z20.818 Contact with and (suspected) exposure to other bacterial communicable diseases; Z20.822 Contact with and (suspected) exposure to COVID-19; Z20.828 Contact with and (suspected) exposure to other viral communicable diseases
CPT/HCPCS: 36415; 80053; 83690; 83880; 85025; 87633; 93005; 99284

== ENCOUNTER 2023-10-18 16:38 | Outpatient (CLI) | payer MEDICAID | END 2023-10-18 23:59 | disposition critical access hospital (66) | LOC: EMS 16:38 | DX: S06.9X1A Unspecified intracranial injury with loss of consciousness of 30 minutes or less, initial encounter (principal); W10.8XXA Fall (on) (from) other stairs and steps, initial encounter; Y93.01 Activity, walking, marching and hiking; Y92.029 Unspecified place in mobile home as the place of occurrence of the external cause | CPT/HCPCS: A0425; A0429; A0999 ==

== ENCOUNTER 2023-10-18 16:59 | Emergency (ER) | payer MEDICAID ==
--- NOTE | 2023-10-18 17:10 | ED Physician Documentation ---
History of Present Illness - Stated complaint Stated Complaint: FALL - History obtained from History obtained from: Patient - Additonal information Additional information: Patient is a 58-year-old female presenting to the emergency department after a fall at home. Patient was drinking alcohol earlier today she notes she drink 1 mikes hard and 2 mixed drinks. Patient is a chronic alcoholic drinker. She notes she slipped and fell down 4 steps hitting the back of her head. She notes she lost consciousness for about 15 seconds and EMS was called shortly after. Patient sustained laceration to the back of her head as well.She denies any other pain other than the back of her head. Patient denies any presyncopal symptoms. 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 HEENT: Other - Present Medications Home Medications: Ambulatory Orders Medication Instructions Recorded Confirmed No Known Home Medications 10/18/23 10/18/23 - Allergies Allergies/Adverse Reactions: Allergies Allergy/AdvReac Type Severity Reaction Status Date / Time No Known Drug Allergies Allergy Verified 10/18/23 17:03 - Social History Does the pt smoke?: Yes Smoking Status: Current every day smoker Does the pt drink ETOH?: Yes Does the pt have substance abuse?: Yes - Immunizations Immunizations are current?: Yes PD ED PE NORMAL - Vitals Vital signs reviewed: Yes - General General: Alert and oriented X 3, No acute distress - HEENT HEENT: Other (Laceration approximately 2 cm in size to posterior head no significant hematoma on examination no palpable step-off. No reproducible C- spine tenderness on examination. Full range of motion on passive range of motion of neck intact. Patient has no focal neurodeficits she is ANO x 3 ) - Neck Neck: Supple, no meningeal sign - Cardiac Cardiac: RRR, No murmur, No gallop, No rub - Derm Derm: Normal color, Warm and dry, Other (No ) - Neuro Neuro: Alert and oriented X 3, clinical lab specialist 2-12 intact Eye Opening: Spontaneous Motor: Obeys Commands Verbal: Oriented GCS Score: 15 - Psych Psych: Normal mood - Free text exam Free text exam: Patient following commands on examination. Sensation intact in upper and lower extremities. Strength intact in upper and lower extremities. No other signs of injury no signs of deformity on exam no reproducible tenderness on upper or lower extremities. Results - Vitals Vitals: Vital Signs - 24 hr 10/18/23 10/18/23 17:03 19:01 Temperature 36.8 C Heart Rate 90 94 Respiratory 18 17 Rate Blood Pressure 142/86 H 116/89 H O2 Saturation 99 100 Oxygen O2 Source Room air - Rads (name of study) CT head and C-spine Relevant Findings:: EMP independent interpretation of test PD Medical Decision Making - ED course Complexity details: reviewed results, re-evaluated patient ED course: Patient is a 58-year-old female presents to the emergency department with past medical history of alcohol abuse. Patient presents after drinking about 3 drinks today she slipped on the stairs and fell and hit her head. Patient lost consciousness for about 15 seconds ambulance was called shortly after and patient was brought to emergency department. Patient sustained laceration to posterior head. Patient denies any nausea or vomiting. She is ANO x 3 and able to recall the events that she slipped going down the stairs to get a drink of water. Patient denies any shaking episodes no tongue biting no incontinence issues. Patient had CT head and CT C-spine performed here in the emergency department she has no other pain on palpation of upper and lower extremities. No other signs of injury no spinal process tenderness on exam. Patient has no signs of focal neurodeficits. CT scan of head shows no acute intracranial findings. Cervical spine shows no acute fracture. Patient is up-to-date on tetanus with last tetanus in 2022. Lacerations were cleaned thoroughly here in the emergency department and 5 carlee were placed 1 in laceration that is approximately 3 cm swelling and a segment that is approximately 2 cm long no signs of injury to galea on examination no palpable hematoma. Patient able to ambulate here in emergency department. Patient admits pain under control after Toradol given after negative CT head here in the emergency department. Patient able to eat and drink here in emergency department without difficulty she remains ANO x 3 she did endorse drinking earlier today but appears clinically sober on my evaluation. Patient instructed to go home and rest and to have sutures removed in 5 days. Patient instructed to return with any redness swelling warmth fevers discharge from wounds and to follow-up with PCP in outpatient setting to have these removed. Patient instructed to return with any new or worsening symptoms. Patient understands and is agreeable with this plan. Departure - Departure Disposition: 01 Home, Self Care Clinical Impression: Scalp laceration, Maxillary sinusitis, Concussion Condition: Good Instructions: ED Laceration All Comments: You were seen here in the emergency department for your fall at home. Your workup here showed no acute findings on your head scan I have placed 5 stitches 3 and 1 laceration into and another laceration to the back of your head. Your tetanus did not need updating here. You need to have the carlee removed in 5 days you can have this done at your primary care doctor's office or at a walk-in clinic. Return with any severe head pain nausea vomiting confusion. Please avoid any alcohol at home and drink lots of fluids when you return home. Return to the ED with any new or worsening symptoms. Watch for any redness swelling warmth fevers discharge these are signs of infection and you should return to the emergency department.
--- NOTE | 2023-10-18 17:41 | CT Report ---
PROCEDURE: Head WO INDICATIONS: pain after fall TECHNIQUE: Noncontrast 4.5 mm thick angled axial sections acquired from the foramen magnum to the vertex. For r adiation dose reduction, the following was used: automated exposure control, adjustment of mA and/or kV according to patient size. COMPARISON: None. FINDINGS: Image quality: Excellent. CSF spaces: Basal cisterns are patent. No extra-axial fluid collections. Ventricles are normal in size and shape. Brain: No midline shift. No intracranial masses or hemorrhage. Li-white matter interface is norm al. Skull and face: Calvarium and visualized facial bones are intact, without suspicious lesions. Sinuses: There is a small air-fluid level within the left maxillary sinus with mild mucoperiosteal t hickening. Visualized sinuses and mastoids are otherwise clear. IMPRESSION: No acute intracranial pathology. Mild acute left maxillary sinusitis. Reviewed by: Debbi Cornejo MD on 10/18/2023 4:39 PM [employer] Approved by: Debbi Cornejo MD on 10/18/2023 4:39 PM [employer] Station ID: [id number]
[2023-10-18] MEDS: LIDOCAINE 1%-EPI 1:100000 20 ML MDV SUBQ STA (17:43)
--- NOTE | 2023-10-18 17:43 | CT Report ---
PROCEDURE: Cervical Spine WO INDICATIONS: pain after fall TECHNIQUE: Noncontrast 3 mm thick sections acquired from the skull base to the T4 level. Sagittal and coronal r eformats were then constructed. For radiation dose reduction, the following was used: automated exp osure control, adjustment of mA and/or kV according to patient size. COMPARISON: None. FINDINGS: Image quality: Excellent. Bones: No fractures or dislocations. Visualized superior ribs are intact. Soft tissues: Prevertebral soft tissues are normal in thickness. No paravertebral hematomas. No ap ical pneumothoraces. IMPRESSION: No acute cervical osseous abnormality. Reviewed by: Debbi Cornejo MD on 10/18/2023 4:41 PM AKSHUKRI Approved by: Debbi Cornejo MD on 10/18/2023 4:41 PM AKSHUKRI Station ID: [id number]
[2023-10-18] MEDS: ACETAMINOPHEN 500 MG TABLET PO STA (18:58)
[2023-10-18] MEDS: KETOROLAC 15 MG/ML VIAL IVP STA (18:58)
[2023-10-18 19:26] VITALS: BP 133/67; O2SAT 98
== END 2023-10-18 19:25 | disposition home or self-care (01) ==
LOC: EDUNIT# → ED 16:59
DX: S01.01XA Laceration without foreign body of scalp, initial encounter (principal); S06.0X1A Concussion with loss of consciousness of 30 minutes or less, initial encounter; F17.200 Nicotine dependence, unspecified, uncomplicated; J32.0 Chronic maxillary sinusitis; W10.9XXA Fall (on) (from) unspecified stairs and steps, initial encounter
CPT/HCPCS: 12001; 70450; 72125; 96374; 99283; 99284; A9270

== ENCOUNTER 2023-12-17 19:27 | Observation (INO) ==
[2023-12-17 19:54] LABS: BASOPHILS # (AUTO) 0.1 10^3/uL (0.0-0.1); BASOPHILS % (AUTO) 0.6 %; EOSINOPHILS % (AUTO) 0.2 %; HCT - HEMATOCRIT 26.8 % (37.0-47.0); HGB - HEMOGLOBIN 8.6 g/dL (12.0-16.0); LYMPHOCYTES # (AUTO) 2.1 10^3/uL (1.5-3.5); LYMPHOCYTES % (AUTO) 22.4 %; MEAN CORPUSCULAR HEMOGLOBIN 32.7 pg (27.0-31.0); MEAN CORPUSCULAR HGB CONC 32.1 g/dL (32.0-36.0); MEAN CORPUSCULAR VOLUME 101.9 fL (81.0-99.0); MEAN PLATELET VOLUME 8.9 fL (7.9-10.8); MONOCYTES # (AUTO) 0.6 10^3/uL (0.0-1.0); MONOCYTES % (AUTO) 6.6 %; NEUTROPHILS # (AUTO) 6.6 10^3/uL (1.5-6.6); NEUTROPHILS % (AUTO) 69.8 %; PLT - PLATELET COUNT 308 10^3/uL (130-450); RED BLOOD COUNT 2.63 10^6/uL (4.20-5.40); RED CELL DISTRIBUTION WIDTH 17.3 % (12.0-15.0); WHITE BLOOD COUNT 9.4 x10^3/uL (4.8-10.8)
--- NOTE | 2023-12-17 19:54 | ED Physician Documentation ---
History of Present Illness Stated complaint Stated Complaint: WEAKNESS Chief complaint Chief Complaint: Neuro Additonal information Additional information: Seen at [facility] for bloodwork today and they called her with critical potassium, possibly 2.1, but not sure. C/O 3 weeks of weakness. She is being worked up for cirrhosis, drinks "3 beers/day." Hx HTN, Hyst Meds/Allgy Home Medications Ambulatory Orders Medication Instructions Recorded Confirmed carvedilol 3.125 mg tablet 3.125 mg PO BID 12/17/23 12/17/23 folic acid 1 mg tablet 1 mg PO DAILY 12/17/23 12/17/23 furosemide 40 mg tablet 40 mg PO DAILY 12/17/23 12/17/23 Allergies Allergies Allergy/AdvReac Type Severity Reaction Status Date / Time No Known Drug Allergies Allergy Verified 12/17/23 19:42 PFSH Social History Social History Smoking Status: Current every day smoker How many cigarettes a day do you smoke? (20 cigarettes=1 Pk): 20 Relationship: Do you feel safe in your home environment?: Yes Suffered physical, verbal, emotional, or financial abuse?: No History of Abuse: No Frequency: Weekly POLST Patient has POLST: No Exam Constitutional normal general appearance and no apparent distress HENMT jaundiced Respiratory diminished with exp wheeze Cardiovascular normal heart rate noted and regular rhythm noted Gastrointestinal severe ascites, not tender Extremities BLE 2+ pitting edema. Neurology no fasciculations noted and GCS 15 Results Vitals Vitals: Vital Signs - 24 hr 12/17/23 19:26 12/17/23 19:47 12/17/23 20:12 Temperature 36.4 C L Temperature Source Temporal Artery Scan Pulse Rate 105 H 95 H 100 H Respiratory Rate 18 22 24 Blood Pressure 102/63 94/59 L 94/59 L O2 Saturation 98 94 98 O2 Source Room air Room air Room air Pain Intensity 0 0 0 12/17/23 20:42 Temperature Temperature Source Pulse Rate 105 H Respiratory Rate 27 H Blood Pressure 103/71 O2 Saturation 99 O2 Source Room air Pain Intensity 0 Oxygen O2 Source Room air EKG (time done) 193: EKG releavant findings:: EKG personally interpreted by author of this note. Relevant findings are: Normal sinus rhythm with multiple mostly PACs, nonspecific repolarization abnormalities and long QTc. In clinical context a lot of these abnormalities are likely related to her electrolyte issues. Labs Labs: Laboratory Tests 12/17/23 19:49 WBC 9.4 RBC 2.63 L Hgb 8.6 L Hct 26.8 L MCV 101.9 H MCH 32.7 H MCHC 32.1 RDW 17.3 H Plt Count 308 MPV 8.9 Neut # (Auto) 6.6 Lymph # (Auto) 2.1 [place] # (Auto) 0.6 Eos # (Auto) 0.0 Baso # (Auto) 0.1 Absolute Nucleated RBC 0.00 Nucleated RBC % 0.0 Sodium 131 L Potassium 2.1 L* Chloride 87 L Carbon Dioxide 30 Anion Gap 14.0 H BUN 4 L Creatinine 0.6 Estimated GFR (MDRD) 102 Glucose 108 H Calcium 6.9 L Magnesium 1.0 L* Total Bilirubin 1.0 AST 85 H ALT 15 Alkaline Phosphatase 207 H Total Protein 5.0 L Albumin 2.6 L Globulin 2.4 Albumin/Globulin Ratio 1.1 Lipase 52 PD Medical Decision Making ED course ED course: She has a history of likely cirrhosis and is on diuretics. She presents with weakness and has severe electrolyte abnormalities including hypokalemia and hypomagnesemia. These were repleted IV and oral. CBC showing slightly worsening anemia. Patient presented to Dr. Amanda Schreiber for admission at 8:32 PM. Discharge Plan Discharge Patient Disposition: 66 [facility] DC/Xfer Condition: Serious Clinical Impression: Cirrhosis, Hypokalemia Prescriptions: No Action folic acid 1 mg tablet 1 mg PO DAILY furosemide 40 mg tablet 40 mg PO DAILY carvedilol 3.125 mg tablet 3.125 mg PO BID Rx Instructions: must administer with a meal/food Print Language: Romansh
[2023-12-17 20:09] LABS: ALBUMIN 2.6 g/dL (3.2-5.5); ALBUMIN/GLOBULIN RATIO 1.1 (1.0-2.2); CALCIUM 6.9 mg/dL (8.5-10.3); CREATININE 0.6 mg/dL (0.6-1.3); POTASSIUM 2.1 mmol/L (3.5-4.5)
[2023-12-17] MEDS: POTASSIUM CHLOR 10 MEQ/100 ML 10 MEQ/100 ML BAG IV SCH (20:28)
[2023-12-17] MEDS: POTASSIUM BICARB 25 MEQ TABLET PO STA (20:28)
[2023-12-17] MEDS: MAGNESIUM SULFATE 2 GRAM 2 GM/50 ML BAG IV ONE ×2 (20:38→22:52)
--- NOTE | 2023-12-17 20:38 | HISTORY & PHYSICAL EXAMINATION ---
Chief Complaint Chief Complaint Chief Complaint: Abnormal labs History of Present Illness Admitted From Admitted From:: ER History Obtained From Records Reviewed: Yes History obtained from: Pt, staff, chart Exam Limitations: Virtual exam History of Present Illness HPI Comment/Other: H&P was conducted via video remotely, using [employer]. Patient is in [place]. Physician is in [place]. No one is at bedside. 58 yo F with PMH of Liver Cirrhosis on Lasix, ETOH abuse, HTN, tobacco use presented to the ER d/t abnormal labs. Pt has been seeing a GI Specialist for her liver cirrhosis. She last saw him on 12/10/23 and he ordered labs. She had the labs drawn today at [facility]. Later in the day, the lab called her GI Specialist and his office called her to let her know that her potassium was low and that she should go to the ER. Pt has had abdominal swelling x about 2 months and started seeing PCP at that time. She was put on Lasix about 2 months ago. She has not been taking potassium. She had a paracentesis done x 1 about 1 month ago. They did not draw off much fluid, but she felt better afterwards. She was told by her PCP and her GI Specialist to stop drinking ETOH, as that may have caused her liver cirrhosis, but her GI Specialist is doing further testing to make sure. Pt has cut down on her ETOH use, but has not stopped completely. She previously drank 3-4 beers every day. She now drinks 1-2 beers every few days. She is trying to quit. Pt has been feeling weak x 3 weeks. No CP/SOB. Her abdomen is tight and uncomfortable. No N/V. No F/C. In the ER, BP 94/59, Hgb 8.6, MCV 101.9, K 2.1, Mg 1.0. EKG: not in chart yet; no significant abnormalities per ER Provider Pt was given KCl 40 meQ IV, K-Effervescent 25 mEq PO, MagSO4 2 gm IV in the ER. Review of Systems Status of ROS: 10 or more systems reviewed and unremarkable except as noted in history and below PFSH Social History Social History Smoking Status: Current every day smoker How many cigarettes a day do you smoke? (20 cigarettes=1 Pk): 20 Relationship: Do you feel safe in your home environment?: Yes Suffered physical, verbal, emotional, or financial abuse?: No History of Abuse: No Frequency: Weekly POLST Patient has POLST: No Meds/Allgy Home Medications Ambulatory Orders Medication Instructions Recorded Confirmed carvedilol 3.125 mg tablet 3.125 mg PO BID 12/17/23 12/17/23 folic acid 1 mg tablet 1 mg PO DAILY 12/17/23 12/17/23 furosemide 40 mg tablet 40 mg PO DAILY 12/17/23 12/17/23 Allergies Allergies Allergy/AdvReac Type Severity Reaction Status Date / Time No Known Drug Allergies Allergy Verified 12/17/23 19:42 Exam Constitutional normal general appearance and no apparent distress HENMT normocephalic Eyes Per ER Provider: +Jaundice; difficult to see pt's eyes via video. Respiratory cart stethoscope not working; per ER Provider: decreased BS with exp wheeze Cardiovascular cart stethoscope not working; per ER Provider:RRR Gastrointestinal Per ER Provider: severe ascites, not tender Extremities Per ER Provider: BLE 2+ pitting edema. Neurology A+Ox3. Per ER Provider: no fasciculations noted and GCS 15 Conclusion/Plan Problem List (1) Hypokalemia: Plan: Hypokalemia Low Magnesium Weakness -K 2.1, Mg 1.0. -EKG: not in chart yet; no significant abnormalities per ER Provider -Pt was given KCl 40 meQ IV, K-Effervescent 25 mEq PO, MagSO4 2 gm IV in the ER. -admit to Obs/Med Tele -hold home medications: Lasix; will need to supplement K when Lasix restarted -supplement K and Mg now and PRN -PT/OT eval Ascites Liver Cirrhosis Alcohol use -INR 1.1, AST 85/ALT 15 -IR consult for therapeutic paracentesis -continue F/U with outpt GI Specialist -MVI, thiamine, Folate -Pt trying to quit ETOH -SW consult Anemia, Macrocytic Hgb 8.6, MCV 101.9 -check B12/Folate -continue home medications: Folate HTN -BP 94/59 -hold home medications: Coreg, Lasix d/t low BP, electrolyte abnormalities Depression -no home meds listed -supportive care Wheezing; possible COPD Tobacco use -Duonebs PRN -cessation counseling VTE Prophylaxis: SCDs d/t anemia Code Status: Full Code ~Amanda Lemus MD Hospitalist Lab Results Lab results reviewed: Yes 11/07/24 19:49 12/17/23 19:49
[2023-12-17 21:01] LABS: BILIRUBIN,URINE NEGATIVE (NEGATIVE); CLARITY,URINE SL. CLOUDY (CLEAR); GLUCOSE, URINE (UA) NEGATIVE (NEGATIVE); KETONES,URINE (UA) NEGATIVE (NEGATIVE); LEUKOCYTE ESTERASE, URINE NEGATIVE (NEGATIVE); NITRITE,URINE POSITIVE (NEGATIVE); OCCULT BLOOD,URINE NEGATIVE (NEGATIVE); PROTEIN,URINE NEGATIVE (NEGATIVE); UROBILINOGEN,URINE 1 (NORMAL) E.U./dL (NORMAL)
[2023-12-17 21:11] LABS: AMORPHOUS SEDIMENT,UR Few /LPF; BACTERIA,URINE Many /HPF (None Seen); RBC,URINE None Seen /HPF (0-5); SQUAMOUS EPITHELIAL CELL,UR FEW Squamous (<= Few); WBC,URINE 0-3 /HPF (0-5)
[2023-12-17] MEDS ORDERED: ONDANSETRON ODT 4 MG TABLET TL PRN (21:38)
[2023-12-17] MEDS ORDERED: ONDANSETRON 4 MG/2 ML VIAL IVP PRN (21:38)
[2023-12-17] MEDS: POTASSIUM CHLORIDE 20 MEQ TABLET PO STA (22:52)
[2023-12-17 23:46] LABS: MAGNESIUM 1.5 mg/dL (1.7-2.3); POTASSIUM 2.6 mmol/L (3.5-4.5)
[2023-12-18] MEDS: SODIUM CHLORIDE FLUSH 0.9% 10 ML SYRINGE IVP SCH (01:22)
[2023-12-18 05:48] LABS: BASOPHILS % (AUTO) 0.3 %; EOSINOPHILS % (AUTO) 0.3 %; HCT - HEMATOCRIT 25.1 % (37.0-47.0); HGB - HEMOGLOBIN 8.2 g/dL (12.0-16.0); LYMPHOCYTES # (AUTO) 1.6 10^3/uL (1.5-3.5); LYMPHOCYTES % (AUTO) 17.5 %; MEAN CORPUSCULAR HEMOGLOBIN 33.1 pg (27.0-31.0); MEAN CORPUSCULAR HGB CONC 32.7 g/dL (32.0-36.0); MEAN CORPUSCULAR VOLUME 101.2 fL (81.0-99.0); MEAN PLATELET VOLUME 9.8 fL (7.9-10.8); MONOCYTES # (AUTO) 0.6 10^3/uL (0.0-1.0); MONOCYTES % (AUTO) 6.5 %; NEUTROPHILS # (AUTO) 6.8 10^3/uL (1.5-6.6); NEUTROPHILS % (AUTO) 74.7 %; PLT - PLATELET COUNT 336 10^3/uL (130-450); RED BLOOD COUNT 2.48 10^6/uL (4.20-5.40); RED CELL DISTRIBUTION WIDTH 17.5 % (12.0-15.0); WHITE BLOOD COUNT 9.1 x10^3/uL (4.8-10.8)
[2023-12-18 05:57] LABS: ALBUMIN 2.5 g/dL (3.2-5.5); ALBUMIN/GLOBULIN RATIO 1.1 (1.0-2.2); BILIRUBIN,TOTAL 1.2 mg/dL (0.2-1.0); CALCIUM 6.9 mg/dL (8.5-10.3); CREATININE 0.5 mg/dL (0.6-1.3); POTASSIUM 3.1 mmol/L (3.5-4.5); TOTAL PROTEIN 4.8 g/dL (6.4-8.9)
[2023-12-18 08:09] LABS: INR 1.2 (0.8-1.2); PT - PROTHROMBIN TIME 13.5 secs (9.9-12.6)
[2023-12-18] MEDS: MAGNESIUM SULFATE 2 GRAM 2 GM/50 ML BAG IV ONE (08:47)
[2023-12-18] MEDS: THIAMINE 100 MG TABLET PO SCH (08:48)
[2023-12-18] MEDS: POTASSIUM CHLORIDE 20 MEQ TABLET PO ONE ×2 (08:48→12:41)
[2023-12-18] MEDS: FOLIC ACID 1 MG TABLET PO SCH (08:48)
[2023-12-18] MEDS: MAGNESIUM OXIDE 400 MG TABLET PO SCH (08:48)
[2023-12-18] MEDS: MULTIVITAMIN TABLET PO SCH (08:48)
[2023-12-18] MEDS: IPRATROPIUM/ALBUTEROL 3 ML NEB INH PRN (09:27)
--- NOTE | 2023-12-18 10:52 | PHARMACY PROGRESS NOTE ---
Best Possible Medication History Admit Date and Time: 12/17/23 2138 Home Medications Medication Instructions Recorded Confirmed Type carvedilol 3.125 mg tablet 3.125 mg PO BID 12/17/23 12/17/23 History folic acid 1 mg tablet 1 mg PO DAILY 12/17/23 12/17/23 History furosemide 40 mg tablet 40 mg PO DAILY 12/17/23 12/17/23 History Processed by: Nursing Medications reviewed in ED?: Yes Medication History completed: Yes Patient Interview: Completed Secondary Source(s): Pharmacy records and Insurance records [facility] Statement: As the person ultimately responsible for medication therapy, providers are able to order a medication from an existing home medication list in [facility] via the "Reconcile Routine" prior to Confirmation of that medication by direct support worker. Such practice is discouraged except when the physician, in their clinical judgment, deems that a medical need exists for a medication without regard to previous use.
[2023-12-18] MEDS: guaiFENesin/DEXTROMETHORPHAN 10 ML UDC PO PRN (11:36)
[2023-12-18] MEDS: LORazepam 2 MG/ML VIAL IVP PRN (11:53)
[2023-12-18] MEDS: SODIUM CHLORIDE FLUSH 0.9% 10 ML SYRINGE IVP PRN (11:53)
[2023-12-18 12:20] LABS: MAGNESIUM 2.9 mg/dL (1.7-2.3); POTASSIUM 3.4 mmol/L (3.5-4.5)
[2023-12-18] MEDS: FOSFOMYCIN TROMETHAMINE 3 GM PACKET PO ONE (12:42)
--- NOTE | 2023-12-18 14:23 | PROVIDER PROGRESS NOTE ---
Subjective Prog Note Date Prog Note Date: 12/18/23 Subjective Pt reports feeling: Improved Subjective: Breathing much easier after paracentesis Current Medications Current Medications Current Medications: Current Medications Generic Name Dose Route Start Last Admin Trade Name Caitlyn PRN Reason Stop Dose Admin Albuterol/Ipratropium 3 ml 12/17/23 22:36 12/18/23 09:27 Ipratropium/Albuterol 3 Ml Neb INH 3 ml Q4HR PRN Administration Wheezing Folic Acid 1 mg 12/18/23 09:00 12/18/23 08:48 Folic Acid 1 Mg Tablet PO 1 mg DAILY ALEJA Administration Guaifenesin 10 ml 12/18/23 09:57 12/18/23 11:36 Guaifenesin/Dextromethorphan 10 Ml Udc PO 10 ml Q6HR PRN Administration Cough Magnesium Oxide 400 mg 12/18/23 08:00 12/18/23 08:48 Magnesium Oxide 400 Mg Tablet PO 400 mg DAILYWM ALEJA Administration Multivitamins 1 tab 12/18/23 09:00 12/18/23 08:48 Multivitamin Tablet PO 1 tab DAILY ALEJA Administration Ondansetron HCl 4 mg 12/17/23 21:38 Ondansetron Odt 4 Mg Tablet TL Q6HR PRN Nausea / Vomiting Ondansetron HCl 4 mg 12/17/23 21:38 Ondansetron 4 Mg/2 Ml Vial IVP Q6HR PRN Nausea / Vomiting Sodium Chloride 10 ml 12/17/23 21:38 12/18/23 11:53 Sodium Chloride Flush 0.9% 10 Ml Syringe IVP 10 ml PRN PRN Administration NEEDED PER PROVIDER ORDERS Sodium Chloride 10 ml 12/18/23 01:00 12/18/23 08:48 Sodium Chloride Flush 0.9% 10 Ml Syringe IVP 10 ml 0100,0900,1700 ALEJA Administration Thiamine HCl 100 mg 12/18/23 09:00 12/18/23 08:48 Thiamine 100 Mg Tablet PO 100 mg DAILY ALEJA Administration Objective Vital Signs/Intake & Output Reviewed Vital Signs: Yes Vital Signs: Vital Signs x48h Temp Pulse Pulse Pulse Resp BP BP 12/18/23 12:48 36.9 C 95 H 20 102/63 12/18/23 11:57 37.0 C 93 H 20 96/67 12/18/23 09:30 98 H 24 12/18/23 07:55 36.7 C 98 H 24 118/79 Pulse Ox 12/18/23 12:48 92 12/18/23 11:57 93 12/18/23 09:30 12/18/23 07:55 93 Intake & Output: Intake & Output 12/16/23 12/17/23 12/18/23 12/19/23 05:59 05:59 05:59 05:59 Intake Total 700 / 700 446 / 446 Output Total 4000 / 4000 Balance 680 / 680 -3554 / -3554 Weight (kg) 50 kg Objective General Appearance: positive No acute distress and Alert Eyes Bilateral: positive Normal inspection and PERRL ENT: positive ENT inspection nml Neck: positive Nml inspection Respiratory: positive Chest non-tender and No respiratory distress Cardiovascular: positive Regular rate & rhythm Abdomen: positive Non-tender Skin: positive Color nml Extremities: positive Non-tender Neurologic/Psychiatric: positive Oriented x3 Lab Results 12/18/23 05:28 12/18/23 11:58 Other Labs: Lab Results x24hrs 12/18/23 12/18/23 12/18/23 Range/Units 11:58 07:49 05:28 WBC 9.1 (4.8-10.8) x10^3/uL RBC 2.48 L (4.20-5.40) 10^6/uL Hgb 8.2 L (12.0-16.0) g/dL Hct 25.1 L (37.0-47.0) % MCV 101.2 H (81.0-99.0) fL MCH 33.1 H (27.0-31.0) pg MCHC 32.7 (32.0-36.0) g/dL RDW 17.5 H (12.0-15.0) % Plt Count 336 (130-450) 10^3/uL MPV 9.8 (7.9-10.8) fL Neut # (Auto) 6.8 H (1.5-6.6) 10^3/uL Lymph # (Auto) 1.6 (1.5-3.5) 10^3/uL [place] # (Auto) 0.6 (0.0-1.0) 10^3/uL Eos # (Auto) 0.0 (0.0-0.7) 10^3/uL Baso # (Auto) 0.0 (0.0-0.1) 10^3/uL Absolute Nucleated RBC 0.00 x10^3/uL Nucleated RBC % 0.0 /100WBC PT 13.5 H (9.9-12.6) secs INR 1.2 (0.8-1.2) APTT 28.0 (24.9-33.3) secs Sodium 132 L (135-145) mmol/L Potassium 3.4 L 3.1 L (3.5-4.5) mmol/L Chloride 93 L (101-111) mmol/L Carbon Dioxide 34 H (21-32) mmol/L Anion Gap 5.0 L (6-13) BUN 4 L (6-20) mg/dL Creatinine 0.5 L (0.6-1.3) mg/dL Estimated GFR (MDRD) 126 (>89) Glucose 109 H (74-104) mg/dL Calcium 6.9 L (8.5-10.3) mg/dL Magnesium 2.9 H (1.7-2.3) mg/dL Total Bilirubin 1.2 H (0.2-1.0) mg/dL AST 84 H (10-42) IU/L ALT 14 (10-60) IU/L Alkaline Phosphatase 240 H (42-121) IU/L Total Protein 4.8 L (6.4-8.9) g/dL Albumin 2.5 L (3.2-5.5) g/dL Globulin 2.3 (2.1-4.2) g/dL Albumin/Globulin Ratio 1.1 (1.0-2.2) Lipase (11-82) U/L Vitamin B12 421 (180-914) pg/mL Folate 19.5 (5.90 - >24.8) ng/mL Urine Color Urine Clarity (CLEAR) Urine pH (5.0-7.5) PH Ur Specific [place] (1.002-1.030) Urine Protein (NEGATIVE) mg/dL Urine Glucose (UA) (NEGATIVE) mg/dL Urine Ketones (NEGATIVE) mg/dL Urine Occult Blood (NEGATIVE) Urine Nitrite (NEGATIVE) Urine Bilirubin (NEGATIVE) Urine Urobilinogen (NORMAL) E.U./dL Ur Leukocyte Esterase (NEGATIVE) Urine RBC (0-5) /HPF Urine WBC (0-5) /HPF Ur Squamous Epith Cells (<= Few) Amorphous Sediment /LPF Urine Bacteria (None Seen) /HPF Ur Microscopic Review Urine Culture Comments 12/17/23 12/17/23 12/17/23 Range/Units 23:29 20:50 19:49 WBC 9.4 (4.8-10.8) x10^3/uL RBC 2.63 L (4.20-5.40) 10^6/uL Hgb 8.6 L (12.0-16.0) g/dL Hct 26.8 L (37.0-47.0) % MCV 101.9 H (81.0-99.0) fL MCH 32.7 H (27.0-31.0) pg MCHC 32.1 (32.0-36.0) g/dL RDW 17.3 H (12.0-15.0) % Plt Count 308 (130-450) 10^3/uL MPV 8.9 (7.9-10.8) fL Neut # (Auto) 6.6 (1.5-6.6) 10^3/uL Lymph # (Auto) 2.1 (1.5-3.5) 10^3/uL [place] # (Auto) 0.6 (0.0-1.0) 10^3/uL Eos # (Auto) 0.0 (0.0-0.7) 10^3/uL Baso # (Auto) 0.1 (0.0-0.1) 10^3/uL Absolute Nucleated RBC 0.00 x10^3/uL Nucleated RBC % 0.0 /100WBC PT (9.9-12.6) secs INR (0.8-1.2) APTT (24.9-33.3) secs Sodium 131 L (135-145) mmol/L Potassium 2.6 L 2.1 L* (3.5-4.5) mmol/L Chloride 87 L (101-111) mmol/L Carbon Dioxide 30 (21-32) mmol/L Anion Gap 14.0 H (6-13) BUN 4 L (6-20) mg/dL Creatinine 0.6 (0.6-1.3) mg/dL Estimated GFR (MDRD) 102 (>89) Glucose 108 H (74-104) mg/dL Calcium 6.9 L (8.5-10.3) mg/dL Magnesium 1.5 L 1.0 L* (1.7-2.3) mg/dL Total Bilirubin 1.0 (0.2-1.0) mg/dL AST 85 H (10-42) IU/L ALT 15 (10-60) IU/L Alkaline Phosphatase 207 H (42-121) IU/L Total Protein 5.0 L (6.4-8.9) g/dL Albumin 2.6 L (3.2-5.5) g/dL Globulin 2.4 (2.1-4.2) g/dL Albumin/Globulin Ratio 1.1 (1.0-2.2) Lipase 52 (11-82) U/L Vitamin B12 (180-914) pg/mL Folate (5.90 - >24.8) ng/mL Urine Color YELLOW Urine Clarity SL. CLOUDY (CLEAR) Urine pH 6.0 (5.0-7.5) PH Ur Specific [place] <=1.005 (1.002-1.030) Urine Protein NEGATIVE (NEGATIVE) mg/dL Urine Glucose (UA) NEGATIVE (NEGATIVE) mg/dL Urine Ketones NEGATIVE (NEGATIVE) mg/dL Urine Occult Blood NEGATIVE (NEGATIVE) Urine Nitrite POSITIVE H (NEGATIVE) Urine Bilirubin NEGATIVE (NEGATIVE) Urine Urobilinogen 1 (NORMAL) (NORMAL) E.U./dL Ur Leukocyte Esterase NEGATIVE (NEGATIVE) Urine RBC None Seen (0-5) /HPF Urine WBC 0-3 (0-5) /HPF Ur Squamous Epith Cells FEW Squamous (<= Few) Amorphous Sediment Few /LPF Urine Bacteria Many H (None Seen) /HPF Ur Microscopic Review INDICATED Urine Culture Comments INDICATED Assessment/Plan Problem List (1) Hypokalemia: Impression: Has had multiple doses of IV and p.o. repletion Potassium 3.4 at 1158 today Magnesium was also low, this has been repleted Had been holding Lasix, now okay to restart (2) Cirrhosis: Impression: Underwent paracentesis with 4 L drained Encourage alcohol cessation as her GI provider believes her cirrhosis is caused by her alcohol consumption (3) Hypertension: Impression: Now with soft BP Holding antihypertensive regimen (4) Tobacco use disorder: Impression: Nicotine patch (5) Alcohol abuse with unspecified alcohol-induced disorder: Impression: Very calm at time of my interview Low threshold to initiate CIWA protocol Reports drinking 1-2 beers every few days (6) Generalized weakness: Impression: PT/OT states that she is not quite strong enough to return home. She has several steps down into her home (7) Acute bacterial simple cystitis: Impression: Noted on UA ordered by ER provider Urine cultures with E. coli Fosfomycin 3 g one-time dose p.o.
--- NOTE | 2023-12-18 16:01 | PT Plan of Care ---
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 Pt switches feet when standing on one leg and need direct cueing to stand with both feet touching the floor. ASSESSMENT Assessment: Pt is a 58 y.o female recently admitted with hypokalemia and chronic cirrhosis. She has a hx of ETOH use, HTN, and potential COPD. She reports renting a room from a couple in [place] but lives alone with her cat. She has 3 stairs to enter the home and 5 go downstairs to her room. The bathroom is in the main area upstairs in the shared space. She reported a recent fall on the outside stairs. Pt has a cane but does not use it. Reports being independent with ADLs and community amb such as grocery shopping, but has recently hasn't due to feeling of general weakness. During PT eval pt reported feeling slightly better after undergoing paracentesis with 4 L drained and agreed to PT eval. Bed moblity to EOB was Devendra using hand rails. STS CGAx1 with FWW and verbal cueing to keep pt on task. In standing pt's BP dropped to 89/56 from initial 105/72. Pt did not report symptoms of dizziness. She was able to amb CGAx1 with FWW around her bed (8-10ft). Slight ataxia and impulsivity observed during standing and amb. She did not report symptoms when she returned to sitting at EOB. Through out session, pt required cueing to re-direct to tasks. Patient will benefit from skilled PT due to general weakness and limited mobility. When medically cleared PT recommends discharge to SNF due to impulsivity, ataxia, high fall risk, and reduced insight into her condition. GOALS Improve supine to sit to:: Independent Improve sit to stand to:: Independent Improve gait ability to:: Ind Advance Assistive Device to:: Single Point Cane Increase distance walked to (in feet):: 20 Improve Sitting Balance to:: Good PLAN Frequency: 1-2x/day Duration: Until goals are met DISCHARGE RECOMMENDATIONS [facility] Support/Services Needed: With assist DC Equipment Recommended: Cane Transport Needs at Discharge: Wheelchair van
[2023-12-18 17:17] LABS: MAGNESIUM 2.6 mg/dL (1.7-2.3); POTASSIUM 3.5 mmol/L (3.5-4.5)
[2023-12-19 05:04] LABS: BASOPHILS % (AUTO) 0.5 %; EOSINOPHILS % (AUTO) 0.4 %; HCT - HEMATOCRIT 25.1 % (37.0-47.0); HGB - HEMOGLOBIN 7.8 g/dL (12.0-16.0); LYMPHOCYTES # (AUTO) 1.9 10^3/uL (1.5-3.5); LYMPHOCYTES % (AUTO) 25.1 %; MEAN CORPUSCULAR HEMOGLOBIN 32.6 pg (27.0-31.0); MEAN CORPUSCULAR HGB CONC 31.1 g/dL (32.0-36.0); MEAN PLATELET VOLUME 9.6 fL (7.9-10.8); MONOCYTES # (AUTO) 0.5 10^3/uL (0.0-1.0); MONOCYTES % (AUTO) 6.2 %; NEUTROPHILS # (AUTO) 5.2 10^3/uL (1.5-6.6); NEUTROPHILS % (AUTO) 67.5 %; PLT - PLATELET COUNT 284 10^3/uL (130-450); RED BLOOD COUNT 2.39 10^6/uL (4.20-5.40); RED CELL DISTRIBUTION WIDTH 18.5 % (12.0-15.0); WHITE BLOOD COUNT 7.7 x10^3/uL (4.8-10.8)
[2023-12-19 05:24] LABS: ALBUMIN 2.3 g/dL (3.2-5.5); BILIRUBIN,TOTAL 0.8 mg/dL (0.2-1.0); CALCIUM 7.4 mg/dL (8.5-10.3); CREATININE 0.5 mg/dL (0.6-1.3); POTASSIUM 4.4 mmol/L (3.5-4.5); TOTAL PROTEIN 4.6 g/dL (6.4-8.9)
[2023-12-19] MEDS: FUROSEMIDE 40 MG TABLET PO SCH (08:42)
[2023-12-19 10:00] VITALS: O2SAT 92
--- NOTE | 2023-12-19 10:56 | Discharge Summary ---
Discharge Summary Admit Date: 12/17/23 Discharge Date: 12/19/23 Discharging Provider: Francisco Hastings NP Primary Care Provider: Maria Dolores Collado DO Code Status: Attempt Resuscitation DIAGNOSES Admission Diagnoses: Hypokalemia Hypomagnesemia Other ascites Weakness Discharge Diagnoses with Status of Each Condition: Alcohol abuse with unspecified alcohol-induced disorder Hypokalemiaresolved Hypomagnesemiaresolved Other asciteschronic Weaknesschronic HPI History of Present Illness: 58-year-old female with past medical history significant for hypertension, tobacco abuse, alcohol abuse which caused cirrhosis with ascites who was placed on Lasix by a outpatient provider. She went to a GI appointment, and had lab work drawn while at that appointment. She was called later with the results of this, and instructed to present immediately to the ER. In the ER, initial potassium was found to be 2.1, with magnesium of 1. She was initiated on potassium and magnesium repletion, and was admitted for same HOSPITAL COURSE Hospital Course: Her potassium and magnesium were repleted over the course of the day. She also had large volume ascites, so she underwent paracentesis on 12/18/2023 with 4 L of fluid removed. Today, she feels much better. She walked with occupational therapy, and is okay to return home as she says that she has a walker at home. ALLERGIES Allergies Allergy/AdvReac Type Severity Reaction Status Date / Time No Known Drug Allergies Allergy Verified 12/17/23 19:42 MEDICATIONS Ambulatory Orders Medication Instructions Recorded Confirmed carvedilol 3.125 mg tablet 3.125 mg PO BID 12/17/23 12/17/23 folic acid 1 mg tablet 1 mg PO DAILY 12/17/23 12/17/23 furosemide 40 mg tablet 40 mg PO DAILY 12/17/23 12/17/23 multivitamin with folic acid 400 1 tab PO DAILY #30 tabs 12/19/23 mcg tablet (Thera) potassium chloride 20 mEq 20 meq PO DAILY #30 tabs 12/19/23 tablet,extended release(part/cryst) (Klor-Con M) thiamine mononitrate (vit B1) 100 100 mg PO DAILY 30 days #30 tabs 12/19/23 mg tablet PHYSICAL EXAM AT DISCHARGE General Appearance: positive No acute distress Eyes Bilateral: positive Normal inspection and PERRL ENT: positive ENT inspection nml Neck: positive Nml inspection Respiratory: positive Chest non-tender and No respiratory distress Cardiovascular: positive Regular rate & rhythm Peripheral Pulses: positive 2+ Abdomen: positive Non-tender Skin: positive Color nml and Other (Scattered abrasions on her legs) Extremities: positive Non-tender Neurologic/Psychiatric: positive Oriented x3 LABS 12/19/23 04:25 12/19/23 04:25 FOLLOW UP Follow Up: With PCP TIME SPENT Time Spent in Discharge (Minutes): 25 Discharge Plan Discharge Patient Disposition: Home, Self Care Condition: Serious Prescriptions: New thiamine mononitrate (vit B1) 100 mg Tablet 100 mg PO DAILY 30 Days Qty: 30 0RF multivitamin with folic acid [Thera] 400 mcg Tablet 1 tab PO DAILY Qty: 30 0RF potassium chloride [Klor-Con M20] 20 mEq tablet,ER particles/crystals 20 meq PO DAILY Qty: 30 2RF Continued folic acid 1 mg tablet 1 mg PO DAILY furosemide 40 mg tablet 40 mg PO DAILY carvedilol 3.125 mg tablet 3.125 mg PO BID Rx Instructions: must administer with a meal/food Diet: Regular Health Concerns: You are a 58-year-old female with past medical history significant for liver cirrhosis on Lasix secondary to alcohol abuse as well as hypertension and tobacco use. You were seen by a GI specialist, and lab work that was ordered there showed a critically low potassium. You were instructed to present to the ER, where you were admitted for low potassium, low magnesium. While admitted, we performed a paracentesis on you which drained 4 L of fluid out of your abdomen. You were evaluated by PT/OT, and they recommend that you are safe to go home and that you should use a walker when you move around within the home. I am restarting your Lasix. This drug is known to cause low potassium. I have also started potassium supplements that I would like for you to take while you are on Lasix. I would like for you to follow-up with your primary care physician soon to ensure that your potassium is still okay. I have also added a multivitamin and thiamine which can help with nutritional deficiencies associated with alcohol abuse Plan of Treatment: Restart Lasix Add potassium Follow-up with PCP Quit drinking/Smoking Print Language: Icelandic Patient Instructions: Hypokalemia Dc Stand Alone Forms: PCP List
--- NOTE | 2023-12-19 11:56 | OT Plan of Care ---
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 Pt is alert and oriented x3 and agreeable to participate. Pt performed ADL for brushing hair, and toileting with modified I by siting, moving w FWW and engaging in toileting with the use of FWW. Pt performed Bed mobility, gait, pivoting and marching with Modified independent. Pt is able to march to the beat of clapping and lift one foot at a time when supported by rail, grab bar or FWW without signs of difficulty. When external support is removed balance difficulties become evident. Pt is aware of challenge and is able to identify the need of supper when raising one foot at a time without external support. Upon medical clearing, patient is recommended to DC home using modified independence for ADL and functional mobility with FWW. Pt verbalized having a FWW at home and committing to utilize it during mobility. Recommendation for Outpatient Rehab to address changes in balance when not being supported by FWW or any other external support. OT Inpatient Plan PLAN Treatment Frequency: Evaluation only, no further O.T. -Discharge Recommendations Discharge Location: Previous Living Situation Support/Services Needed: Outpt. O.T. Transport Needs at Discharge: Wheelchair van Comment: Recommendation to use FWW at home and grab bars for additional support in toilet bathroom
--- NOTE | 2023-12-19 22:35 | Ultrasound Report ---
PROCEDURE: US Abdominal Paracentesis INDICATIONS: Ascites, tense, symptomatic TECHNIQUE: The indications, alternatives, benefits, risks, and complications of the procedure were explained to the patient. Written informed consent was obtained and placed in the chart. The abdomen and pelvis were examined sonographically, and an appropriate site was chosen for paracentesis. The skin was pre pared and draped in the usual sterile fashion, and 1% lidocaine was infiltrated from the skin down th rough the peritoneal surface. A 19-gauge catheter-covered needle was then introduced into the perito vasquez space, the catheter was advanced and the needle was withdrawn, and thereafter peritoneal fluid w as withdrawn. The catheter was then removed and a dressing was applied. The fluid was discarded if the clinician did not order diagnostic testing of the fluid. COMPARISON: None FINDINGS: Access site: Right lower quadrant Needle: One-Step centesis catheter with introducer needle. Fluid volume and description: 4 L yellow Fluid sent for diagnostic testing: No Medications: 1% lidocaine for local anaesthesia. Complications: None. IMPRESSION: Successful ultrasound-guided paracentesis. Reviewed by: Nidhi Coronado MD on 12/19/2023 10:34 PM PST Approved by: Nidhi Coronado MD on 12/19/2023 10:34 PM PST Station ID: [id number]
== END 2023-12-19 13:00 | disposition home or self-care (01) ==
LOC: MS2 19:27 → ED 19:27 → MS2 22:30
PROVIDERS: ADMIT Internal Medicine; ATTEND Internal Medicine
DX: I49.1 Atrial premature depolarization; D53.9 Nutritional anemia, unspecified; B96.89 Other specified bacterial agents as the cause of diseases classified elsewhere; R06.2 Wheezing; K70.31 Alcoholic cirrhosis of liver with ascites; F32.A Depression, unspecified; K76.6 Portal hypertension; R53.1 Weakness; R94.31 Abnormal electrocardiogram [ECG] [EKG]; Z79.899 Other long term (current) drug therapy; I10 Essential (primary) hypertension; E87.6 Hypokalemia; E83.42 Hypomagnesemia; F10.19 Alcohol abuse with unspecified alcohol-induced disorder; N30.00 Acute cystitis without hematuria; F17.210 Nicotine dependence, cigarettes, uncomplicated